=== PATIENT | male | born 1965 | race Caucasian/White ===

== ENCOUNTER 2017-04-26 10:24 | Inpatient (IN) | payer MEDICARE ==
[~2017-04-26] VITALS: Ht 167.6 cm; Wt 68.0 kg
[2017-04-26] VITALS (24 sets, daily range): BP systolic 76–125; BP diastolic 50–74
[2017-04-26 10:52] LABS: URINE BLOOD DIPSTICK LARGE (NEGATIVE); URINE COLOR YELLOW; URINE GLUCOSE - DIPSTICK NEGATIVE (NEGATIVE); URINE KETONE NEGATIVE (NEGATIVE); URINE LEUK ESTERASE NEGATIVE (NEGATIVE); URINE NITRITE - DIPSTICK NEGATIVE (Negative); URINE PH 5.5 (4.5-8.0); URINE PROTEIN - DIPSTICK 30 mg/dL (NEG-TRACE); URINE SPECIFIC GRAVITY >=1.030
[2017-04-26 10:52] LABS: IMMATURE GRANULOCYTES 0.5 % (0.0-1.0); MEAN CELL VOLUME 91.9 fL CALC (80.0-100.0); MEAN CORPUSCULAR HGB 31.4 pG CALC (26.0-32.0); MEAN CORPUSCULAR HGB CONC 34.1 g/L CALC (32.0-36.0); NEUT# 17.11 thou/uL (1.82-7.42); RED BLOOD COUNT 4.46 mill/uL (4.70-6.10)
[2017-04-26 11:05] LABS: PROTHROMBIN TIME 11.3 SECONDS (9.0-12.5)
[2017-04-26 11:06] LABS: URINE BILIRUBIN - DIPSTICK SMALL (NEGATIVE); URINE CLARITY CLOUDY
[2017-04-26 11:06] LABS: ALBUMIN 4.2 g/dL (3.2-5.0); ALKALINE PHOSPHATASE 63 u/l (38-126); ANION GAP 21 (6-22 (CALC)); BILIRUBIN, TOTAL 1.1 mg/dL (0.0-1.4); BUN 25 mg/dL (9-20); BUN/CREATININE RATIO 20 (12-20 (CALC)); CALCIUM 8.3 mg/dL (8.4-10.2); CARBON DIOXIDE 25 mmol/l (22-30); CHLORIDE 103 mmol/l (95-108); CREATININE 1.3 mg/dL (0.7-1.3); GFR 58 ML/MIN (>=60 (CALC)); GFR FOR AFR.AMER. > 60 ML/MIN (>=60 (CALC)); GLUCOSE 131 mg/dL (75-110); POTASSIUM 3.6 mmol/l (3.5-5.1); SGOT/AST 262 u/l (17-59); SGPT/ALT 107 u/l (21-72); SODIUM 146 mmol/l (137-146); TOTAL PROTEIN 7.6 g/dL (6.3-8.2)
[2017-04-26 11:07] LABS: URINE EPITHELIAL CELLS FEW EPI/hpf (0-FEW); URINE RBC 25-50 RBC/hpf (0-5); URINE WBC 0-2 WBC/hpf (0-5)
[2017-04-26 11:23] LABS: MYOGLOBIN > 2000 ng/mL (0 - 121)
[2017-04-26 12:30] LABS: BARBITURATES NEGATIVE (NEGATIVE); COCAINE NEGATIVE (NEGATIVE); METHADONE NEGATIVE (NEGATIVE); OXCYCODONE NEGATIVE (NEGATIVE); TETRAHYDROCANNABIONOL NEGATIVE (NEGATIVE); TRICYLIC ANTIDEPRESSANTS NEGATIVE (NEGATIVE)
[2017-04-26 15:32] LABS: URINE BILIRUBIN - DIPSTICK NEGATIVE (NEGATIVE); URINE BLOOD DIPSTICK LARGE (NEGATIVE); URINE CLARITY CLEAR; URINE COLOR YELLOW; URINE GLUCOSE - DIPSTICK NEGATIVE (NEGATIVE); URINE KETONE NEGATIVE (NEGATIVE); URINE LEUK ESTERASE NEGATIVE (NEGATIVE); URINE NITRITE - DIPSTICK NEGATIVE (Negative); URINE PROTEIN - DIPSTICK NEGATIVE (NEG-TRACE); URINE UROBILINOGEN - DIPSTICK 0.2 E.U./dL (0.2)
[2017-04-26 15:59] LABS: URINE RBC 25-50 RBC/hpf (0-5); URINE SQUAMOUS EPITHELIAL CELL FEW EPI/hpf (0-FEW)
[2017-04-27] VITALS (145 sets, daily range): BP systolic 86–132; BP diastolic 55–91
[2017-04-27 05:57] LABS: HEMATOCRIT 31.9 % (39.0-50.0); HEMOGLOBIN 10.8 g/dl (14.0-18.0); MEAN CORPUSCULAR HGB 31.5 pG CALC (26.0-32.0); MEAN CORPUSCULAR HGB CONC 33.9 g/L CALC (32.0-36.0); RED BLOOD COUNT 3.43 mill/uL (4.70-6.10); RED CELL DISTRI WIDTH 13.5 % (11.5-15.5)
[2017-04-27 06:20] LABS: ALBUMIN 2.4 g/dL (3.2-5.0); ALKALINE PHOSPHATASE 42 u/l (38-126); ANION GAP 10 (6-22 (CALC)); BILIRUBIN, TOTAL 0.8 mg/dL (0.0-1.4); BUN 13 mg/dL (9-20); BUN/CREATININE RATIO 14 (12-20 (CALC)); CALCIUM 7.8 mg/dL (8.4-10.2); CARBON DIOXIDE 23 mmol/l (22-30); CHLORIDE 110 mmol/l (95-108); CREATININE 0.9 mg/dL (0.7-1.3); GFR > 60 ML/MIN (>=60 (CALC)); GFR FOR AFR.AMER. > 60 ML/MIN (>=60 (CALC)); GLUCOSE 77 mg/dL (75-110); MAGNESIUM 1.9 mg/dL (1.6-2.3); POTASSIUM 3.8 mmol/l (3.5-5.1); SGOT/AST 240 u/l (17-59); SGPT/ALT 91 u/l (21-72); SODIUM 140 mmol/l (137-146); TOTAL PROTEIN 4.8 g/dL (6.3-8.2)
[2017-04-27 12:14] LABS: BETA-HCG, QUANT(RESULT NUMBER) <2 mIU/mL
[2017-04-28] VITALS (21 sets, daily range): BP systolic 90–128; BP diastolic 56–78
[2017-04-28 05:49] LABS: HEMATOCRIT 32.2 % (39.0-50.0); HEMOGLOBIN 10.8 g/dl (14.0-18.0); IMMATURE GRANULOCYTES 0.5 % (0.0-1.0); MEAN CELL VOLUME 94.7 fL CALC (80.0-100.0); MEAN CORPUSCULAR HGB 31.8 pG CALC (26.0-32.0); MEAN CORPUSCULAR HGB CONC 33.5 g/L CALC (32.0-36.0); NEUT# 4.97 thou/uL (1.82-7.42); RED BLOOD COUNT 3.4 mill/uL (4.70-6.10); RED CELL DISTRI WIDTH 13.4 % (11.5-15.5)
[2017-04-28 05:54] LABS: ALBUMIN 2.5 g/dL (3.2-5.0); ALKALINE PHOSPHATASE 43 u/l (38-126); ANION GAP 11 (6-22 (CALC)); BUN 13 mg/dL (9-20); BUN/CREATININE RATIO 14 (12-20 (CALC)); CALCIUM 7.8 mg/dL (8.4-10.2); CARBON DIOXIDE 25 mmol/l (22-30); CHLORIDE 108 mmol/l (95-108); CREATININE 0.9 mg/dL (0.7-1.3); GFR > 60 ML/MIN (>=60 (CALC)); GFR FOR AFR.AMER. > 60 ML/MIN (>=60 (CALC)); GLUCOSE 83 mg/dL (75-110); POTASSIUM 3.8 mmol/l (3.5-5.1); SGOT/AST 215 u/l (17-59); SGPT/ALT 102 u/l (21-72); SODIUM 140 mmol/l (137-146); TOTAL PROTEIN 4.9 g/dL (6.3-8.2)
[2017-04-28 06:17] LABS: CPK > 16000 u/l (52-200)
== END 2017-04-28 17:40 | disposition short-term general hospital (02) | DRG 208 ==
LOC: ED 10:24 → ED-I 14:05 → ED 14:20 → ICU 14:21
PROVIDERS: Family Medicine; Internal Medicine; Nurse Practitioner Family; ADMIT Internal Medicine; ATTEND Internal Medicine
PROC: 0BH17EZ Insertion of Endotracheal Airway into Trachea, Via Natural or Artificial Opening (ICD-10-PCS; principal; 2017-04-26)
PROC: 5A1945Z Respiratory Ventilation, 24-96 Consecutive Hours (ICD-10-PCS; 2017-04-26)
PROC: 0T9B70Z Drainage of Bladder with Drainage Device, Via Natural or Artificial Opening (ICD-10-PCS; 2017-04-26)
PROC: 02HV33Z Insertion of Infusion Device into Superior Vena Cava, Percutaneous Approach (ICD-10-PCS; 2017-04-26)
PROC: 009U3ZX Drainage of Spinal Canal, Percutaneous Approach, Diagnostic (ICD-10-PCS; 2017-04-26)
DX: J96.02 Acute respiratory failure with hypercapnia (principal); G93.40 Encephalopathy, unspecified; R56.9 Unspecified convulsions; C79.31 Secondary malignant neoplasm of brain; E87.2 Acidosis; M62.82 Rhabdomyolysis; R79.89 Other specified abnormal findings of blood chemistry; Z85.47 Personal history of malignant neoplasm of testis
CPT/HCPCS: J1650; J2060; Q9967

== ENCOUNTER 2024-04-02 09:47 | Emergency (ER) | payer MEDICARE ==
[2024-04-02] VITALS (10 sets, daily range): BP systolic 109–135; BP diastolic 68–86
[~2024-04-02] VITALS: Ht 167.6 cm; Wt 70.7 kg
[2024-04-02 12:24] LABS: BASO% 0.3 % (0-3); HEMATOCRIT 44.1 % (39.0-50.0); HEMOGLOBIN 14.3 g/dl (14.0-18.0); IMMATURE GRANULOCYTES 0.2 % (0.0-5.0); LYMPH% 14.8 % (15-41); MEAN CELL VOLUME 93.8 fL CALC (80.0-100.0); MEAN CORPUSCULAR HGB 30.4 pG CALC (26.0-32.0); MEAN CORPUSCULAR HGB CONC 32.4 g/dL CAL (32.0-36.0); MONO% 20.9 % (2-13); NEUT# 4.09 thou/uL (1.82-7.42); NEUT% 63.8 % (42-76); RED BLOOD COUNT 4.7 mill/uL (4.70-6.10); RED CELL DISTRI WIDTH 12.6 % (11.5-15.5)
[2024-04-02 12:38] LABS: ALBUMIN 3.9 g/dL (3.2-5.0); BILIRUBIN, TOTAL 0.4 mg/dL (0.2-1.3); POTASSIUM 4.3 mmol/l (3.5-5.1); TOTAL PROTEIN 6.7 g/dL (6.3-8.2)
[2024-04-02] MEDS ORDERED: CIPROFLOXACN500 MG PO (13:42)
[2024-04-02] MEDS ORDERED: METRONIDAZOLE500 MG PO (13:42)
== END 2024-04-02 14:00 | disposition home or self-care (01) ==
LOC: ED 09:47
PROVIDERS: Emergency Medicine
DX: K50.111 Crohn's disease of large intestine with rectal bleeding (principal)
CPT/HCPCS: Q9967

== ENCOUNTER 2024-07-28 22:19 | Inpatient (IN) | payer MEDICARE ==
[~2024-07-28] VITALS: Ht 167.6 cm; Wt 73.0 kg
[~2024-07-28 22:19] MED LIST: CIPROFLOXACN500 MG PO; METRONIDAZOLE500 MG PO
[2024-07-28 22:32] VITALS: BP 130/89
--- NOTE | 2024-07-28 22:33 | NUR ---
PATIENT AMBUALTED TO ROOM 3, CAREGIVER AT SIDE.
--- NOTE | 2024-07-28 22:45 | NUR ---
PATIENT NOTED TACHY IN THE 120S-130S. HIS OXYGENT SAT NOTED 80%, PATIENT PLACED ON 2L O2 VIA NC. HE IS NOTED 94 AT THIS TIME.
--- NOTE | 2024-07-28 22:46 | NUR ---
CAREGIVER LEFT AND LEFT PHONE NUMBER TO PATIENTS FATHER ON THE COUNTER.
[2024-07-28 22:56] VITALS: BP 129/79
[2024-07-28 23:00] VITALS: BP 131/79
[2024-07-28] MEDS ORDERED: CIPROFLOXACN0.3 % OD (23:05)
[2024-07-28 23:11] LABS: BASO% 0.3 % (0-3); HEMATOCRIT 46.8 % (39.0-50.0); HEMOGLOBIN 14.5 g/dl (14.0-18.0); IMMATURE GRANULOCYTES 0.3 % (0.0-5.0); LYMPH% 10.1 % (15-41); MEAN CELL VOLUME 99.2 fL CALC (80.0-100.0); MEAN CORPUSCULAR HGB 30.7 pG CALC (26.0-32.0); MONO% 23.3 % (2-13); NEUT# 4.09 thou/uL (1.82-7.42); RED BLOOD COUNT 4.72 mill/uL (4.70-6.10); RED CELL DISTRI WIDTH 13.2 % (11.5-15.5)
[2024-07-28 23:15] VITALS: BP 136/83
[2024-07-28 23:23] LABS: ALBUMIN 4.1 g/dL (3.2-5.0); ALKALINE PHOSPHATASE 66 u/l (38-126); ANION GAP 11 (6-22 (CALC)); BILIRUBIN, TOTAL 0.5 mg/dL (0.2-1.3); BUN 22 mg/dL (9-20); BUN/CREATININE RATIO 17 (12-20 (CALC)); CARBON DIOXIDE 31 mmol/l (22-30); CHLORIDE 100 mmol/l (95-108); CREATININE 1.3 mg/dL (0.7-1.3); ESTIMATED GFR 64 ML/MIN (>=90 (CALC)); LIPASE 191 u/l (23-300); POTASSIUM 4.2 mmol/l (3.5-5.1); SODIUM 138 mmol/l (137-146); TOTAL PROTEIN 7.2 g/dL (6.3-8.2)
[2024-07-28 23:26] LABS: SGOT/AST 57 u/l (17-59)
[2024-07-28 23:30] VITALS: BP 135/84
[2024-07-28] MEDS ORDERED: ALBUTEROL SULFATE 2.5 MG VIAL IN ONE (23:30)
[2024-07-28] MEDS ORDERED: SODIUM CHLORIDE 0.45% 1,000 ML IV ONE (23:30)
[2024-07-28] MEDS ORDERED: DEXAMETHASONE SOD. PHOSPHATE 10 MG/ML VIAL IV ONE (23:30)
[2024-07-28 23:45] VITALS: BP 134/83
[2024-07-28] MEDS ORDERED: OSELTAMIVIR PHOSPHATE 75 MG/TAB CAP PO ONE (23:55)
[2024-07-28] MEDS ORDERED: SODIUM CHLORIDE 0.9% 1,000 ML IV ONE ×2 (23:55)
[2024-07-29] VITALS (37 sets, daily range): BP systolic 87–132; BP diastolic 59–80
--- NOTE | 2024-07-29 00:34 | NUR ---
PT MEDICATED PER MD ORDERS. PT UPDATED ON POC AWITING FOR RAD RESULTS AT THIS TIME PT VOICES UNDERSTANDING WITH NO FURTHER QUESTIONS. PT CALL LIGHT WITHIN REACH, IVF RUNNING.
[2024-07-29] MEDS ORDERED: Iopamidol 370 (Isovue) 76% 100 ML SDV IV ONE (00:50)
--- NOTE | 2024-07-29 01:26 | NUR ---
PT GIVEN A MEAL. PT SITTING IN FOWLERS POSITION, CALL LIGHT WITHIN REACH.
--- NOTE | 2024-07-29 02:19 | NUR ---
PT REMOVED NASAL CANNULA, PT EDUCATTED ON NEED FOR NASAL CANULA. PT VOICES UNDERSTANDING. PT UPDATED ON POC, AWAITING FOR RAD RESULTS AT THIS TIME. PT CALL LIGHT WITHIN REACH.
--- NOTE | 2024-07-29 04:24 | NUR ---
RT AT BEDSIDE FOR CHERELLE ALLEN.
[2024-07-29] MEDS ORDERED: IPRATROPIUM-Albuterol 0.5MG-2.5MG/3 ML NEB ONE (04:25)
[2024-07-29] MEDS ORDERED: guaiFENesin-CODEINE 200-20 MG/10 ML UDC PO PRN (04:50)
[2024-07-29] MEDS ORDERED: ACETAMINOPHEN 500 MG TAB PO PRN (04:50)
[2024-07-29] MEDS ORDERED: SODIUM CHLORIDE 0.9% 1,000 ML IV ONE (04:50)
[2024-07-29] MEDS ORDERED: ONDANSETRON HCl 4 MG/2 ML SDV IV PRN (04:50)
[2024-07-29] MEDS ORDERED: MAGNESIUM SULFATE HEPTAHYDRATE 50 ML IV ONE (05:25)
--- NOTE | 2024-07-29 05:41 | NUR ---
PT REPORT GIVEN TO ICU.
--- NOTE | 2024-07-29 06:05 | NUR ---
PT C/O BIPAP BOTHERING HIM AND WANTS IT OFF SAYING " THIS THING IS PULLING MY FACE APART." NOTIFIED.
--- NOTE | 2024-07-29 06:08 | NUR ---
MD VOICES TO PLACE PT ON HIGH FLOW OXYGEN.
--- NOTE | 2024-07-29 06:30 | NUR ---
PT TRANSPORTED TO ICU.
--- NOTE | 2024-07-29 07:00 | NUR ---
PT ARRIVED 0630, RT @ BEDSIDE
[2024-07-29] MEDS ORDERED: IPRATROPIUM-Albuterol 0.5MG-2.5MG/3 ML NEB PRN (08:25)
--- NOTE | 2024-07-29 08:30 | NUR ---
PT IS LAYING IN BED AWAKE. CALL LIGHT IN REACH.
[2024-07-29] MEDS ORDERED: methylPREDNISolone Sod Succ 40 MG/ML SDV IV SCH (09:00)
[2024-07-29] MEDS ORDERED: OSELTAMIVIR PHOSPHATE 75 MG/TAB CAP PO SCH (09:00)
[2024-07-29] MEDS ORDERED: AZITHROMYCIN 500 MG in SODIUM CHLORIDE 0.9% 250 ML IV SCH (10:00)
--- NOTE | 2024-07-29 10:00 | NUR ---
PT IS AWAKE WATCHING TV IN BED. CALL LIGHT IN REACH.
[2024-07-29] MEDS ORDERED: PANTOPRAZOLE SODIUM Sesquihydr 40 MG/TAB PO SCH (11:00)
[2024-07-29] MEDS ORDERED: METOPROLOL TARTRATE 25 MG/TAB PO SCH (11:00)
--- NOTE | 2024-07-29 12:00 | NUR ---
PT IS SLEEPING IN BED, CALL LIGHT IN REACH. EVEN AND UNLABORED BREATHING, CONNECTED TO TELEMETRY.
--- NOTE | 2024-07-29 14:00 | NUR ---
PT IS SITTING IN BED AWAKE WITH PARENTS AT THE BEDSIDE. CALL LIGHT IN REACH.
--- NOTE | 2024-07-29 16:24 | NUR ---
PT IS WATCHING HIS PHONE, SITTING IN BED. CALL LIGHT IN REACH.
--- NOTE | 2024-07-29 18:06 | NUR ---
PT IS ON HIS PHONE IN BED. CALL LIGHT IN REACH.
--- NOTE | 2024-07-29 19:00 | NUR ---
REPORT RECEIVED FROM OFF GOING NURSE.
--- NOTE | 2024-07-29 20:00 | NUR ---
PATIENT NOTED LYING IN BED WITH NO ACUTE DISTRESS NOTED. ASSESSMENT COMPLETED (SEE INTERVENTIONS). HE IS ON 02 @ 4L VIA NC. WITH SATS IN THE MID 90S. NO REPIRATORY DISTRESS NOTED. BREATHING NOTED EVEN AND UNLABORED. BED LOCKED, IN LOW POSIITION, CALL LIGHT WITHIN REACH.
[2024-07-29] MEDS ORDERED: ENOXAPARIN SODIUM 40 MG/0.4 ML SYR SC SCH (21:00)
--- NOTE | 2024-07-29 22:00 | NUR ---
PATIENT NOTED LYING IN BED WITH HOB ELEVATED WATCHING TELEVISION AT THIS TIME. HE WAS GIVEN A SNACK AT THIS TIME. NO ACUTE DISTRESS NOTED. VSS. NO RESPIRATORY DISTRESSS NOTED. BED LOCKED, IN LOW POSITION, CALL LIGHT WITHIN REACH.
[2024-07-30] VITALS (22 sets, daily range): BP systolic 94–120; BP diastolic 63–83
--- NOTE | 2024-07-30 | NUR ---
PATIENT SLEEPING AT THIS TIME. NO ACUTE DISTRESS NOTED. VSS. BED LOCKED, IN LOW POSITION, CALL LIGHT WITHIN REACH.
--- NOTE | 2024-07-30 02:16 | NUR ---
PATIENT SATURATION DROPPED INTO THE 80S, OXYGEN NOTED OFF. O2 PLACED BACK ON. PATIENT REMAINING IN THE LOW 90S. PATIENT REFUSES BIPAP AT THIS TIME.
--- NOTE | 2024-07-30 06:00 | NUR ---
PATIENT NOTED SLEEPING WITH NO ACUTE DISTRESS NOTED.
--- NOTE | 2024-07-30 07:05 | NUR ---
PT SITTING UP IN THE BED AWAKE, PT IS A&O X3, PUPILS PERRL, RESP. EVEN AND UNLABORED, LUNG SOUNDS ARE COARSE, PT IS ON 4L O2 VIA NC, NORMAL S1 S2 HEART SOUNDS, PT IS ON TELE, ABD DISTENDED AND SOFT WITH ACTIVE BOWEL SOUNDS, STRONG RADIAL PULSES, WEAK PEDAL PULSES, 20G RAC IV SL, SAFETY MEASURES REINFORCED, CALL PEREA WITHIN REACH
--- NOTE | 2024-07-30 08:00 | NUR ---
SETUP ASSISTANCE PROVIDED WITH AM MEAL, PT DENIES ANY OTHER NEEDS AT THIS TIME, PT REMINDED TO CALL FOR ASSISTANCE, PT VERBALIZED UNDERSTANDING, CALL PEREA WITHIN REACH
--- NOTE | 2024-07-30 08:20 | NUR ---
PROVIDER AT BEDSIDE DISCUSSING PLAN OF CARE
[2024-07-30] MEDS ORDERED: ACETYLCYSTEINE 20% 200 MG/ML SDV IN SCH (09:00)
[2024-07-30 09:05] LABS: HEMOGLOBIN 14.5 g/dl (14.0-18.0); IMMATURE GRANULOCYTES 0.2 % (0.0-5.0); LYMPH% 7.3 % (15-41); MEAN CELL VOLUME 103.2 fL CALC (80.0-100.0); MEAN CORPUSCULAR HGB 30.5 pG CALC (26.0-32.0); MEAN CORPUSCULAR HGB CONC 29.6 g/dL CAL (32.0-36.0); MONO% 3.7 % (2-13); NEUT# 5.21 thou/uL (1.82-7.42); NEUT% 88.8 % (42-76); RED BLOOD COUNT 4.75 mill/uL (4.70-6.10); RED CELL DISTRI WIDTH 12.9 % (11.5-15.5)
[2024-07-30 09:31] LABS: ALBUMIN 3.6 g/dL (3.2-5.0); BILIRUBIN, TOTAL 0.4 mg/dL (0.2-1.3); CREATININE 0.9 mg/dL (0.7-1.3); POTASSIUM 4.8 mmol/l (3.5-5.1); TOTAL PROTEIN 6.3 g/dL (6.3-8.2)
--- NOTE | 2024-07-30 09:34 | NUR ---
RT AT BESIDE EXPLAINING INCENTIVE SPIROMETER TO PT, PT VERBALIZED UNDERSTANDING ON HOW TO USE IT AND HOW FREQUENTLY HE SHOULD BE USING IT
--- NOTE | 2024-07-30 10:00 | NUR ---
PT HAS VISITOR AT BEDSIDE, NO S/S OF DISTRESS AT THIS TIME, CALL PEREA WITHIN REACH
--- NOTE | 2024-07-30 12:00 | NUR ---
PT SITTING UP IN THE BED WATCHING TV, SETUP ASSISTANCE PROVIDED WITH SETTING UP PT'S LUNCH TRAY, PT DENIES ANY OTHER NEEDS AT THIS TIME, PT REMINDED TO CALL FOR ASSISTANCE, PT VERBALIZED UNDERSTANDING, CALL PEREA WITHIN REACH
[2024-07-30] MEDS ORDERED: SODIUM CHLORIDE 3 % INHALATION NEB 4ML IN SCH (13:00)
--- NOTE | 2024-07-30 14:00 | NUR ---
PT SITTING UP IN THE BED WATCHING TV, RESP. EVEN AND UNLABORED AT THIS TIME, NO SIGNS OF DISTRESS, CALL PEREA WITHIN REACH
--- NOTE | 2024-07-30 16:00 | NUR ---
PT RESTING WITH EYES CLOSED, RESP. EVEN AND UNLABORED, CALL LIGHT WITHIN REACH
--- NOTE | 2024-07-30 16:46 | NUR ---
PATIENT'S SISTER CALLED AND STATED THAT THE FAMILY DID NOT REQUEST TO HAVE APPROXIMATELY 1605 PATIENT'S FRIEND WHO WAS VISITING REQUESTED THAT WE TRANSFER PATIENT TO [facility]. ADVISED FRIEND THAT PATIENT DOES NOT NEED A HIGHER LEVEL OF CARE AT THIS TIME, VERBALIZED UNDERSTANDING. PATIENT TRANSFERRED TO ANOTHER FACILITY. IT WAS THE "FRIEND'S IDEA TO HAVE PATIENT TRANSFERRED. FAMILY WAS UNDER THE IMPRESSION THAT THE FRIEND WAS CALLING ON BEHALF OF THE HOSPITAL TO TRANSFER PATIENT TO A HIGHER LEVEL OF CARE. SISTER ADVISED THAT IS NOT TRUE AT THIS POINT IN TIME. SISTER REQUESTED PROVIDER TO CALL WITH AN UPDATE, IF POSSIBLE, IN THE MORNING. WILL PASS INFORMATION TO PATIENT'S NURSE, VERENICE TORRES LPN. EVELYN HIDALGO [phone] - SISTER [phone] LOUISA LAMB, PATIENT'S FATHER/POA, CELL NUMBER
--- NOTE | 2024-07-30 19:00 | NUR ---
REPORT RECEIVED FROM OFF GOING NURSE.
--- NOTE | 2024-07-30 20:00 | NUR ---
PATIENT NOTED LYING IN BED RESTING COMFORTABLY WITH NO ACUTE DISTRESS NOTED. ASSESSMENT COMPLETED (SEE INTERVENTIONS). BREATHING NOTED EVEN AND UNLABORED. NO RESPIRATORY DISTRESS NOTED. BED LOCKED, IN LOW POSITION, CALL LIGHT WITHIN REACH.
--- NOTE | 2024-07-30 22:00 | NUR ---
PATIENT LYING IN BED RESTING COMFORTABLY WITH NO ACUTE DISTRESS NOTED, WATCHING TELEVISION. NO RESPIRATORY DISTRESS NOTED.
[2024-07-31] VITALS (25 sets, daily range): BP systolic 107–137; BP diastolic 69–99
--- NOTE | 2024-07-31 | NUR ---
PATIENT SLEEPING WITH NO ACUTE DISTRESS NOTED. VSS STABLE.
[2024-07-31 05:56] LABS: HEMATOCRIT 45.3 % (39.0-50.0); HEMOGLOBIN 14.1 g/dl (14.0-18.0); IMMATURE GRANULOCYTES 0.3 % (0.0-5.0); LYMPH% 8.2 % (15-41); MEAN CELL VOLUME 100.2 fL CALC (80.0-100.0); MEAN CORPUSCULAR HGB 31.2 pG CALC (26.0-32.0); MEAN CORPUSCULAR HGB CONC 31.1 g/dL CAL (32.0-36.0); MONO% 9.9 % (2-13); NEUT# 5.09 thou/uL (1.82-7.42); NEUT% 81.6 % (42-76); RED BLOOD COUNT 4.52 mill/uL (4.70-6.10); RED CELL DISTRI WIDTH 12.7 % (11.5-15.5)
--- NOTE | 2024-07-31 06:00 | NUR ---
NO CHANGES NOTED. BED LOCKED, IN LOW POSITION, CALL LIGHT WITHIN REACH.
[2024-07-31 06:09] LABS: ALBUMIN 3.4 g/dL (3.2-5.0); BILIRUBIN, TOTAL 0.4 mg/dL (0.2-1.3); CREATININE 0.9 mg/dL (0.7-1.3); POTASSIUM 4.5 mmol/l (3.5-5.1); TOTAL PROTEIN 6.1 g/dL (6.3-8.2)
[2024-07-31 06:32] LABS: MAGNESIUM 2.3 mg/dL (1.6-2.3)
[2024-07-31 07:36] LABS: C-REACTIVE PROTEIN 1.1 mg/dL (0-0.9)
--- NOTE | 2024-07-31 08:00 | NUR ---
REPORT RECEIVED FROM NIGHT NURSE. PATIENT AXO X3. UPPER LUNG SOUNDS CLEAR, LOWER COARSE, NON-PRODUCTIVE COUGH NOTED, NO SOB NOTED. S1S2 NOTED, NORMAL SINUS ON TELE. ABDOMEN SOFT, NON DISTENDED, NON TENDER, WITH ACTIVE BOWEL SOUNDS. UPPER PULSES STRONG, LOWER WEAK. SKIN WDI. CALL LIGHT IN REACH.
--- NOTE | 2024-07-31 10:00 | NUR ---
PATIENT SITTING UP IN BED WATCHING TV. ALL NEEDS MET. CALL LIGHT IN REACH.
--- NOTE | 2024-07-31 11:03 | NUR ---
PATIENT COMPLAINED OF R ARM NUMBNESS THAT STARTED APPROMIXATELY "ONE HOUR" AGO. INITIALLY PATIENT C/O R ARM PAIN D/T IV. IV CHECKED BY PRIMARY NURSE (PN), ELA Melendez RN. PN ATTEMPTED TO DC IV AND PATIENT STATED I "CAN'T FEEL MY ARM. THAT IS WEIRD. PN CONTACTED EDGARDO, ICU DIRECTOR FOR EVALUATION. STROKE ALERT CALLED, PATIENT TRANSFERRED TO CT FOR CTB.
--- NOTE | 2024-07-31 11:08 | NUR ---
STROKE ALERT NURSE MAHMOOD.
--- NOTE | 2024-07-31 12:01 | NUR ---
ATTEMPTED TO CONTACT PATIENT'S FATHER, MYNOR, TO UPDATE. NO ANSWER, VOICEMAIL LEFT.
--- NOTE | 2024-07-31 12:21 | NUR ---
PATIENT STATES HE IS STARTING TO HAVE FEELING IN HIS RIGHT ARM BUT IT IS STILL TINGLING.
--- NOTE | 2024-07-31 14:00 | NUR ---
PATIENT LAYING IN BED ASLEEP. ALL NEEDS MET. CALL LIGHT IN REACH.
--- NOTE | 2024-07-31 16:00 | NUR ---
PATIENT SITTING UP IN BED WATCHING TV. ALL NEEDS MET. CALL LIGHT IN REACH.
--- NOTE | 2024-07-31 18:00 | NUR ---
PATIENT SITTING UP IN BED ASLEEP. ALL NEEDS MET. CALL LIGHT IN REACH.
--- NOTE | 2024-07-31 19:30 | NUR ---
awake. denies resp distress. monorail charger operator shows sinus rhythm freq pvcs. saline lock in place. po fluids taken well. voids per urinal. fall precautions cont.
--- NOTE | 2024-07-31 22:00 | NUR ---
watching tv. no distress.
[2024-08-01] VITALS (23 sets, daily range): BP systolic 113–146; BP diastolic 78–98
--- NOTE | 2024-08-01 00:01 | NUR ---
eyes closed. no distress. cardiac technologist shows sinus rhythm freq pvcs.
--- NOTE | 2024-08-01 02:00 | NUR ---
resting quietly. no apparent distress.
--- NOTE | 2024-08-01 04:00 | NUR ---
eyes closed. no distress. quality assurance monitor shows sinus rhythm freq pvcs.
[2024-08-01 05:31] LABS: HEMATOCRIT 44.7 % (39.0-50.0); HEMOGLOBIN 14.1 g/dl (14.0-18.0); MEAN CELL VOLUME 99.1 fL CALC (80.0-100.0); MEAN CORPUSCULAR HGB 31.3 pG CALC (26.0-32.0); MEAN CORPUSCULAR HGB CONC 31.5 g/dL CAL (32.0-36.0); RED BLOOD COUNT 4.51 mill/uL (4.70-6.10); RED CELL DISTRI WIDTH 12.8 % (11.5-15.5)
[2024-08-01 05:50] LABS: ALBUMIN 3.5 g/dL (3.2-5.0); BILIRUBIN, TOTAL 0.3 mg/dL (0.2-1.3); CREATININE 0.9 mg/dL (0.7-1.3); MAGNESIUM 2.2 mg/dL (1.6-2.3); POTASSIUM 4.2 mmol/l (3.5-5.1); TOTAL PROTEIN 6.2 g/dL (6.3-8.2)
--- NOTE | 2024-08-01 05:52 | NUR ---
awake. watching tv. no distress.
--- NOTE | 2024-08-01 08:00 | NUR ---
REPORT RECEIVED FROM NIGHT NURSE. PT IS A/O. ADMITTED WITH FLU AND PNA. PT SEEN BY DR. DAUGHERTY THIS MORNING. UPON ENTERING ROOM PT HAD HIS OXYGEN OFF, AND SAID HE WAS HAVING TROUBLE BREATHING. PT INSTRUCTED TO PUT OXYGEN BACK ON AND TO LEAVE IT ON. O2 INCREASED FROM 2-3L NC BY [place]. O2 SAT INCREASED FROM 87 TO 92%. LUNG SOUNDS COARSE; PT HAS NON-PRODUCTIVE COUGH. HEART SOUNDS S1S2; PT IS SINUS TACH ON MONITOR WITH FREQUENT PVC'S. BS ACTIVE. ABDOMEN SOFT/NON-TENDER. PULSES STRONG ALL EXTREMETIES. SKIN W/D/I; AFEBRILE. PT SITTING IN BED EATING BREAKFAST. CALL LIGHT AND BELONGINGS WITHIN REACH. VSS.
[2024-08-01] MEDS ORDERED: methylPREDNISolone Sod Succ 40 MG/ML SDV IV SCH (09:00)
--- NOTE | 2024-08-01 09:15 | NUR ---
TELE-NEUROLOGY CONSULT COMPLETED.
[2024-08-01 09:41] LABS: CHOLESTEROL HDL RATIO 5.6 (<4.4 (CALC))
[2024-08-01] MEDS ORDERED: ASPIRIN EC 81 MG/TAB PO SCH (10:00)
--- NOTE | 2024-08-01 10:50 | NUR ---
PT WALKED IN ROOM WITH PT. DID WELL. NOW SITTING IN CHAIR. BELONGINGS AND CALL LIGHT IN REACH. VSS.
--- NOTE | 2024-08-01 11:00 | NUR ---
OT AT BEDSIDE TO ASSESS PT.
--- NOTE | 2024-08-01 12:28 | NUR ---
NO CHANGES TO PT STATUS. PT SITTING IN CHAIR; ATE LUNCH. VISITOR AT BEDSIDE. CALL LIGHT IN REACH, VSS.
--- NOTE | 2024-08-01 14:22 | NUR ---
PT TAKEN TO MRI BY WHEELCHAIR.
--- NOTE | 2024-08-01 14:50 | NUR ---
PT BACK FROM MRI. PT UNABLE TO COMPLETE TESTING DUE TO NOT BEING ABLE TO SIT STILL AND LIE FLAT. DR. DAUGHERTY NOTIFIED. PT SITTING IN CHAIR. CALL LIGHT IN REACH.
--- NOTE | 2024-08-01 16:21 | NUR ---
PT ASSISTED TO GET BACK INTO BED FROM CHAIR. ALL BELONGINGS WITHIN REACH. PT DENIES ANY FURTHER NEEDS.
--- NOTE | 2024-08-01 18:15 | NUR ---
NO CHANGES TO PT STATUS. PT ATE DINNER. VISITORS AT BEDSIDE. CALL LIGHT AND BELONGINGS WITHIN REACH. VSS.
--- NOTE | 2024-08-01 19:10 | NUR ---
awake. denies distress. o2 cont per nc. secured entrance monitor shows sinus tach pvcs. #20 rac saline lock. po fluids taken well. voids per urinal. fall precautions cont.y
--- NOTE | 2024-08-01 19:55 | NUR ---
xray here. pcxr obtained.
[2024-08-01] MEDS ORDERED: METOPROLOL TARTRATE 25 MG/TAB PO SCH (21:00)
--- NOTE | 2024-08-01 22:00 | NUR ---
eyes closed. no distress. o2 cont.
[2024-08-02] VITALS (24 sets, daily range): BP systolic 116–146; BP diastolic 76–98
--- NOTE | 2024-08-02 00:01 | NUR ---
eyes closed. no distress. hall monitor shows sinus rhythm pvcs.
--- NOTE | 2024-08-02 02:00 | NUR ---
resting quietly. resps even & unlabored. no apparent distress.
--- NOTE | 2024-08-02 04:00 | NUR ---
voided per urinal. no distress.
--- NOTE | 2024-08-02 06:00 | NUR ---
conditioner tumbler operator shows sinus rhythm pvcs.
--- NOTE | 2024-08-02 07:15 | NUR ---
PT REPORT RECEIVED FROM SUPPLY AIDE. PT SITTING UP IN BED OXYGEN ON, WHEN ADVISED HIM OF PLAN OF CARE OF A WALK TEST TODAY HE STATED HE DIDNT WANT TO GET UP AND WALK, SPOKE TO HIM AND TOLD HIM THAT WE NEEDED TO EVALUATE HIS OXYGEN LEVEL FOR NEED OF OXYGEN FOR HOME, HE STATED THAT HE WOULD THEN DO IT. DENIES ANY COMPLAINTS AT THIS TIME. IV SITE HEALTHY.
[2024-08-02 09:09] LABS: HEMATOCRIT 45.8 % (39.0-50.0); HEMOGLOBIN 14.6 g/dl (14.0-18.0); MEAN CORPUSCULAR HGB 30.9 pG CALC (26.0-32.0); MEAN CORPUSCULAR HGB CONC 31.9 g/dL CAL (32.0-36.0); RED BLOOD COUNT 4.72 mill/uL (4.70-6.10); RED CELL DISTRI WIDTH 12.5 % (11.5-15.5)
[2024-08-02 09:19] LABS: ALBUMIN 3.6 g/dL (3.2-5.0); MAGNESIUM 2.3 mg/dL (1.6-2.3); POTASSIUM 4.4 mmol/l (3.5-5.1); TOTAL PROTEIN 6.3 g/dL (6.3-8.2)
[2024-08-02 09:20] LABS: BILIRUBIN, TOTAL 0.5 mg/dL (0.2-1.3)
[2024-08-02 09:23] LABS: CREATININE 0.8 mg/dL (0.7-1.3)
--- NOTE | 2024-08-02 09:24 | NUR ---
oxygen removed for walk test per resspiratory tech, after 5 min before walking pt, sats began to drop to 85 with pt just sitting in bed.
[2024-08-02] MEDS ORDERED: GUAIFENESIN 200 MG/10 ML UDC PO PRN (09:45)
--- NOTE | 2024-08-02 10:40 | NUR ---
Took pt off O2. Spo2 dropped to low 80s, RN placed back on NC. Unable to complete 6 minute walk at this time. Will continue to monitor pt on o2.
--- NOTE | 2024-08-02 10:53 | NUR ---
PT RESTING QUIETLY ON BED, WATCHING TV. ANTIBIOTICS INFUSING. CASE MANAGEMENT SPOKE WITH PARENTS AND FATHER STATES THAT PT WILL BE COMING TO HIS HOUSE TO STAY AFTER DISCHARGE UNTIL HE CAN STAY ON HIS OWN.
--- NOTE | 2024-08-02 11:06 | NUR ---
ECHO HERE FOR DOPPLER STUDIES.
--- NOTE | 2024-08-02 12:46 | NUR ---
pt family at bedside, dr. bolivar speaking with family. pt denies any complaints, sats stay at 90-92
--- NOTE | 2024-08-02 13:51 | NUR ---
CASE MANAGEMENT AT BEDSIDE WITH FATHER FATHER HAS DECIDED NOW THAT HE MAYBE SHOULD SEND PT TO A REHAB INSTEAD OF TAKING HIM HOME WITH HIM FROM THE HOSPITAL AT THIS TIME.
--- NOTE | 2024-08-02 17:48 | NUR ---
noticed heart rate of pt went to 153, sustaining for 20 second , ekg obtained, by the time it was done heart rate had dropped back down to low 100's, dr. bolivar notified.
--- NOTE | 2024-08-02 19:05 | NUR ---
awake. no resp distress. o2 cont per nc. bus monitor shows sinus tach pvcs. saline lock in place. po fluids taken well. voids per urinal. fall precautions cont.
--- NOTE | 2024-08-02 22:00 | NUR ---
eyes closed. no distress.
[2024-08-03] VITALS (16 sets, daily range): BP systolic 114–140; BP diastolic 81–95
--- NOTE | 2024-08-03 00:01 | NUR ---
eyes closed. nurse monitoring shows sinus rhythm pvcs.
--- NOTE | 2024-08-03 02:00 | NUR ---
resting quietly. no distress. o2 cont.
--- NOTE | 2024-08-03 04:00 | NUR ---
eyes closed. cariac monitor shows sinus rhythm pvcs.
--- NOTE | 2024-08-03 05:30 | NUR ---
lab here. blood drawn.
[2024-08-03 05:40] LABS: HEMATOCRIT 46.3 % (39.0-50.0); HEMOGLOBIN 14.5 g/dl (14.0-18.0); IMMATURE GRANULOCYTES 1.7 % (0.0-5.0); MEAN CELL VOLUME 97.7 fL CALC (80.0-100.0); MEAN CORPUSCULAR HGB 30.6 pG CALC (26.0-32.0); MEAN CORPUSCULAR HGB CONC 31.3 g/dL CAL (32.0-36.0); MONO% 8.1 % (2-13); NEUT# 4.17 thou/uL (1.82-7.42); NEUT% 78.2 % (42-76); RED BLOOD COUNT 4.74 mill/uL (4.70-6.10); RED CELL DISTRI WIDTH 12.6 % (11.5-15.5)
[2024-08-03 06:04] LABS: ALBUMIN 3.4 g/dL (3.2-5.0); ALKALINE PHOSPHATASE 49 u/l (38-126); ANION GAP 9 (6-22 (CALC)); BILIRUBIN, TOTAL 0.6 mg/dL (0.2-1.3); BUN 22 mg/dL (9-20); BUN/CREATININE RATIO 26 (12-20 (CALC)); CARBON DIOXIDE 37 mmol/l (22-30); CHLORIDE 98 mmol/l (95-108); CREATININE 0.9 mg/dL (0.7-1.3); ESTIMATED GFR 100 ML/MIN (>=90 (CALC)); POTASSIUM 4.8 mmol/l (3.5-5.1); SGOT/AST 46 u/l (17-59); SODIUM 139 mmol/l (137-146); TOTAL PROTEIN 6.2 g/dL (6.3-8.2)
[2024-08-03 06:06] LABS: C-REACTIVE PROTEIN < 0.5 mg/dL (0-0.9)
[2024-08-03] MEDS ORDERED: guaiFENesin-CODEINE 200-20 MG/10 ML UDC PO PRN (07:10)
--- NOTE | 2024-08-03 07:28 | NUR ---
REPORT RECEIVED FROM DIRECTOR HEMATOLOGY. PT RESTING IN BED, NO COMPLAINTS AT THIS TIME, HEART RATE IN THE 80'S, PT STATES SLEPT WELL LAST NIGHT, ADVISED PT OF POC FOR POSSIBLE TRANSFER TO REHAB, PT VOICES UNDERSTANDING.
[2024-08-03] MEDS ORDERED: CRESTOR20 MG PO (08:03)
[2024-08-03] MEDS ORDERED: LOPRESSOR25 M1 PO (08:04)
[2024-08-03] MEDS ORDERED: METOPROLOL TARTRATE 50 MG/TAB PO SCH (09:00)
--- NOTE | 2024-08-03 11:32 | NUR ---
PT SITTING UP IN BED EATING LUNCH, DENIES ANY COMPLAINTS AT THIS TIME, WILL CONTINUE TO MONITER. POC TO BE TRANSFERRED AT 4, PT AND FAMILY AWARE
[2024-08-03] MEDS ORDERED: PREDNISONE10 MG PO (12:16)
[2024-08-03] MEDS ORDERED: COD PO (12:16)
[2024-08-03] MEDS ORDERED: VIBRAMYCIN100 M2 PO (12:16)
[2024-08-03] MEDS ORDERED: ADLT ASA LOW81 MG PO (12:16)
[2024-08-03] MEDS ORDERED: LOPRESSOR 550 MG/TAB PO (12:16)
[2024-08-03] MEDS ORDERED: GUAIFENESIN PO (12:16)
--- NOTE | 2024-08-03 13:01 | NUR ---
REPORT CALLED TO REHAB AN SPOKE TO RONIT HUTCHISON. ADVISED OF PLAN OF 4 MEDICAL FACILITIES SECTION DIRECTOR PER EMS FOR TRANSFER.
== END 2024-08-03 16:10 | DRG 193 ==
LOC: ED 22:19 → ED-I 23:45 → ED 23:45 → ED-I 07-29 04:24 → ED 07-29 05:07 → ICU 07-29 05:08
PROVIDERS: Emergency Medicine; Psychiatry & Neurology Neurology; ADMIT Internal Medicine; ATTEND Internal Medicine
DX: J10.00 Influenza due to other identified influenza virus with unspecified type of pneumonia (principal); J96.01 Acute respiratory failure with hypoxia; J96.02 Acute respiratory failure with hypercapnia; I10 Essential (primary) hypertension; E78.5 Hyperlipidemia, unspecified; R20.0 Anesthesia of skin; H91.90 Unspecified hearing loss, unspecified ear; I49.3 Ventricular premature depolarization; R00.0 Tachycardia, unspecified; R74.8 Abnormal levels of other serum enzymes; T46.6X6A Underdosing of antihyperlipidemic and antiarteriosclerotic drugs, initial encounter; Z91.128 Patient's intentional underdosing of medication regimen for other reason; Z90.79 Acquired absence of other genital organ(s); Z85.47 Personal history of malignant neoplasm of testis; Z90.2 Acquired absence of lung [part of]; Z20.822 Contact with and (suspected) exposure to COVID-19; Z97.4 Presence of external hearing-aid
CPT/HCPCS: J0456; J0696; J1100; J1650; J3475